=== PATIENT | female | born 1980 | race Caucasian/White ===

== ENCOUNTER 2018-09-18 06:31 | Emergency (ER) | payer OTHER, SELFPAY ==
--- NOTE | 2018-09-18 06:52 | ER ---
Nurse's Notes [facility] Name: Alysha Knight Age: 38 yrs Sex: Female : 1980 Arrival Date: 09/18/2018 Time: 06:32 Bed 7 Private MD: Diagnosis: Burn of second degree of right forearm;Cellulitis of right upper limb Presentation: 09/18 06:38 Presenting complaint: Patient states: she burned her R forearm on the oven at her work aa1 4 days ago and it has still not gotten any better. Transition of care: patient was not received from another setting of care. Onset of symptoms was September 14, 2018. Risk Assessment: Do you want to hurt yourself or someone else? Patient reports no desire to harm self or others. Initial Sepsis Screen: Does the patient meet any 2 criteria? No. Patient's initial sepsis screen is negative. Does the patient have a suspected source of infection? Yes: Skin breakdown/wound. Care prior to arrival: None. 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 - Social history:: Smoking status: Patient uses tobacco products, smokes one-half pack cigarettes per day. - Ebola Screening: : No symptoms or risks identified at this time. Screenin:41 Abuse screen: Denies threats or abuse. Denies injuries from another. Nutritional aa1 screening: No deficits noted. Tuberculosis screening: No symptoms or risk factors identified. Fall Risk None identified. Assessment: 06:41 General: Appears in no apparent distress. comfortable, Behavior is calm, cooperative, aa1 appropriate for age. Pain: Complains of pain in palmar aspect of right forearm Is continuous. Neuro: Level of Consciousness is awake, alert, obeys commands, Oriented to person, place, time, situation, Moves all extremities. Full function. Respiratory: Airway is patent Respiratory effort is even, unlabored, Respiratory pattern is regular, symmetrical. GI: No signs and/or symptoms were reported involving the gastrointestinal system. : No signs and/or symptoms were reported regarding the genitourinary system. EENT: No signs and/or symptoms were reported regarding the EENT system. Derm: Skin is intact, is healthy with good turgor, Skin is pink, warm \T\ dry. Musculoskeletal: Circulation, motion, and sensation intact. Capillary refill < 3 seconds. Injury Description: Burn was sustained 4 days Patient sustained second-degree burn(s) to palmar aspect of right forearm. 07:05 Reassessment: Patient appears in no apparent distress at this time. Patient is alert, aa1 oriented x 3, equal unlabored respirations, skin warm/dry/pink. Discussed d/c \T\ f/u instructions with pt; denies questions or concerns at this time. Vital Signs: 06:35 BP 140 / 89; Pulse 106; Resp 18; Temp 98.1; Pulse Ox 99% on R/A; Weight 113.4 kg; aa1 Height 5 ft. 9 in. (175.26 cm); Pain 10/10; 06:35 Body Mass Index 36.92 (113.40 kg, 175.26 cm) aa1 ED Course: 06:32 Patient arrived in ED. am2 06:35 Arm band placed on right wrist. aa1 06:38 Patrizia Clifton FNP-C is [facility]. kb 06:38 Jessenia Hanks MD is Attending Physician. kb 06:40 Antionette Morales RN is Primary Nurse. aa1 06:41 Patient has correct armband on for positive identification. Bed in low position. Call aa1 light in reach. Pulse ox on. NIBP on. 06:41 No provider procedures requiring assistance completed. Patient did not have IV access aa1 during this emergency room visit. 06:50 Dressings: Ananda x 1 palmar aspect of right forearm non-adherent dressing x 1 palmar aa1 aspect of right forearm. Burn care of medium second degree burn to palmar aspect of right forearm irrigated, Silvadene applied. 07:02 Triage completed. aa1 Administered Medications: 06:53 Drug: Bactrim (160 mg-800 mg (DS) 1 tablet Route: PO; aa1 06:58 Follow up: Response: Medication administered at discharge. aa1 06:53 Drug: KeFLEX 500 mg Route: PO; aa1 06:58 Follow up: Response: Medication administered at discharge. aa1 06:53 Drug: Silvadene Cream 1 % 1 application Route: Topical; Site: affected area; aa1 Outcome: 06:51 Discharge ordered by . roxanne 07:06 Discharged to home ambulatory. aa1 07:06 Condition: good 07:06 Discharge instructions given to patient, Instructed on discharge instructions, follow up and referral plans. medication usage, wound care, Demonstrated understanding of instructions, follow-up care, medications, wound care, Prescriptions given X 2. 07:07 Patient left the ED. aa1 Signatures: Patrizia Clifton, WINDYC KWAN-Antionette Barba RN RN aa1 Komal Medina am2
--- NOTE | 2018-09-18 06:52 | EDPHYS ---
Physician Documentation [facility] Name: Alysha Knight Age: 38 yrs Sex: Female : 1980 Arrival Date: 09/18/2018 Time: 06:32 Bed 7 Private MD: ED Physician Jessenia Hanks HPI: 09/18 06:43 This 38 yrs old Female presents to ER via Unassigned with complaints of Arm kb Burn. 06:43 The patient presents with a burn as a result of a hot surface, an oven, at work, is kb located on the palmar aspect of right forearm. Onset: The symptoms/episode began/occurred 5 day(s) ago. Burn type and severity: 2nd degree: of the palmar aspect of right forearm. Associated signs and symptoms: none. The patient did not suffer any apparent inhalation injury, The patient had no loss of consciousness. The patient has not experienced similar symptoms in the past. The patient has not recently seen a physician. Pt reports she was closing the oven door on Thursday and somehow it touched her arm, burning her. Pt has a second degree burn in the shape of a triangle to forearm. Appears that blister was there initially and has popped. Pt reports pain, swelling and redness has developed and worsened since onset. Surrounding cellulitis is noted. . 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 - Social history:: Smoking status: Patient uses tobacco products, smokes one-half pack cigarettes per day. - Ebola Screening: : No symptoms or risks identified at this time. ROS: 06:43 Constitutional: Negative for fever, chills, and weight loss, ENT: Negative for injury, kb pain, and discharge, Neck: Negative for injury, pain, and swelling, Cardiovascular: Negative for chest pain, palpitations, and edema, Respiratory: Negative for shortness of breath, cough, wheezing, and pleuritic chest pain, Abdomen/GI: Negative for abdominal pain, nausea, vomiting, diarrhea, and constipation, Back: Negative for injury and pain, : Negative for injury, bleeding, discharge, and swelling, MS/Extremity: Negative for injury and deformity, Neuro: Negative for headache, weakness, numbness, tingling, and seizure. 06:43 Skin: Positive for burn, cellulitis, of the palmar aspect of right forearm. Exam: 06:43 Constitutional: This is a well developed, well nourished patient who is awake, alert, kb and in no acute distress. Head/Face: Normocephalic, atraumatic. ENT: Nares patent. No nasal discharge, no septal abnormalities noted. Tympanic membranes are normal and external auditory canals are clear. Oropharynx with no redness, swelling, or masses, exudates, or evidence of obstruction, uvula midline. Mucous membranes moist. Neck: Trachea midline, no thyromegaly or masses palpated, and no cervical lymphadenopathy. Supple, full range of motion without nuchal rigidity, or vertebral point tenderness. No Meningismus. Chest/axilla: Normal chest wall appearance and motion. Nontender with no deformity. No lesions are appreciated. Cardiovascular: Regular rate and rhythm with a normal S1 and S2. No gallops, murmurs, or rubs. Normal PMI, no JVD. No pulse deficits. Respiratory: Lungs have equal breath sounds bilaterally, clear to auscultation and percussion. No rales, rhonchi or wheezes noted. No increased work of breathing, no retractions or nasal flaring. Abdomen/GI: Soft, non-tender, with normal bowel sounds. No distension or tympany. No guarding or rebound. No evidence of tenderness throughout. MS/ Extremity: Pulses equal, no cyanosis. Neurovascular intact. Full, normal range of motion. Neuro: Awake and alert, GCS 15, oriented to person, place, time, and situation. Cranial nerves II-XII grossly intact. Motor strength 5/5 in all extremities. Sensory grossly intact. Cerebellar exam normal. Normal gait. 06:43 Skin: cellulitis, that is mild, on the palmar aspect of right forearm, injury, burn(s), 2nd degree burn injury covers approximately 1% of the total body surface area, and is located on the palmar aspect of right forearm. Vital Signs: 06:35 BP 140 / 89; Pulse 106; Resp 18; Temp 98.1; Pulse Ox 99% on R/A; Weight 113.4 kg; aa1 Height 5 ft. 9 in. (175.26 cm); Pain 10/10; 06:35 Body Mass Index 36.92 (113.40 kg, 175.26 cm) aa1 MDM: 06:39 Patient medically screened. kb 06:43 Data reviewed: vital signs, nurses notes. Data interpreted: Pulse oximetry: on room air kb is 100 %. Interpretation: normal. Counseling: I had a detailed discussion with the patient and/or guardian regarding: the historical points, exam findings, and any diagnostic results supporting the discharge/admit diagnosis, the need for outpatient follow up, a family practitioner, to return to the emergency department if symptoms worsen or persist or if there are any questions or concerns that arise at home. ED course: Pt educated on importance of keeping wound clean. Cleaning and dressing instructions given. Verbal understanding received. . 09/18 06:42 Order name: Wound Care: clean and dress burn; Complete Time: 06:58 kb Administered Medications: 06:53 Drug: Bactrim (160 mg-800 mg (DS) 1 tablet Route: PO; aa1 06:58 Follow up: Response: Medication administered at discharge. aa1 06:53 Drug: KeFLEX 500 mg Route: PO; aa1 06:58 Follow up: Response: Medication administered at discharge. aa1 06:53 Drug: Silvadene Cream 1 % 1 application Route: Topical; Site: affected area; aa1 Disposition: 09/18/18 06:51 Discharged to Home. Impression: Burn of second degree of right forearm, Cellulitis of right upper limb. - Condition is Stable. - Discharge Instructions: Cellulitis, Adult, [id number], Burn Care, [id number], Second-Degree Burn. - Prescriptions for Keflex 500 mg Oral Capsule - take 1 capsule by ORAL route every 8 hours for 10 days; 30 capsule. Bactrim DS 800- 160 mg Oral Tablet - take 1 tablet by ORAL route every 12 hours for 10 days; 20 tablet. - Medication Reconciliation Form, Thank You Letter, Antibiotic Education, Prescription Opioid Use, Work release form form. - Follow up: Emergency Department; When: As needed; Reason: Worsening of condition. Follow up: Private Physician; When: 2 - 3 days; Reason: Recheck today's complaints, Continuance of care, Re-evaluation by your physician. Addendum: 09/21/2018 10:32 Co-signature as Attending Physician, Jessenia Hanks MD. m a2 Signatures: Patrizia Clifton FNP-C FNP-Ckb Autenrieth, Alissa RN RN aa1 Jessenia Hanks MD MD ma2 Corrections: (The following items were deleted from the chart) 09/18 07:07 06:51 09/18/2018 06:51 Discharged to Home. Impression: Burn of second degree of right aa1 forearm; Cellulitis of right upper limb. Condition is Stable. Forms are Medication Reconciliation Form, Thank You Letter, Antibiotic Education, Prescription Opioid Use. Follow up: Emergency Department; When: As needed; Reason: Worsening of condition. Follow up: Private Physician; When: 2 - 3 days; Reason: Recheck today's complaints, Continuance of care, Re-evaluation by your physician. kb
[2018-09-18] MEDS ORDERED: CEPHALEXIN 250 MG CAP ONE (07:02)
[2018-09-18] MEDS ORDERED: SMZ./TMP. 800/160 MG TABLET ONE (07:02)
[2018-09-18] MEDS ORDERED: SILVER SULFADIAZINE 1% 25 GM TOP ONE (07:02)
== END 2018-09-18 07:07 | disposition home or self-care (01) ==
LOC: ER 06:31
DX: T22.211A Burn of second degree of right forearm, initial encounter (principal); L03.113 Cellulitis of right upper limb; X15.0XXA Contact with hot stove (kitchen), initial encounter; Y93.89 Activity, other specified; Y92.89 Other specified places as the place of occurrence of the external cause; Y99.8 Other external cause status; F17.210 Nicotine dependence, cigarettes, uncomplicated
CPT/HCPCS: 99284

== ENCOUNTER 2020-09-14 08:37 | Emergency (ER) | payer SELFPAY ==
--- OUTSIDE RECORDS SUMMARY | 2020-09-14 08:40 | XMS REPORT | Continuity of Care Document ---
:1980 Author Organization [facility] t Address [address] [place] [address] [address] [place] [address] Care Team Providers Name Role Phone Dima HARDING Attending Clinician Ulisses Attending Clinician Unavailable Problems This patient has no known problems. Allergies, Adverse Reactions, Alerts This patient has no known allergies or adverse reactions. Medications This patient has no known medications. Procedures This patient has no known procedures. Encounters Start End Encounter Admission Attending Care Care Encounter Source Date/Time Date/Time Type Type Clinicians Facility Department ID 2020-09-12 2020-09-12 Emergency Dima [facility] [id number] 08:07:00 08:29:00 Wa[place]as [place] [id number] [place] [id number] [place] [id number] 2020-08-29 2020-08-29 Office JACLYN [facility] [id number] 10:39:35 11:39:35 Visit [facility] [id number] [facility] [id number] [place] [id number] Results This patient has no known results.
[2020-09-14 10:32] LABS: Absolute Lymphocytes (CBC) 2.3 K/uL (0.7-4.9); Basophils % 0.4 % (0-1.3); Hematocrit 39.8 % (36.0-45.0); Lymphocytes % 38.2 % (15.3-44.8); MPV 7.9 fL (7.6-11.3); RBC Red Blood Cell Count 4.35 M/uL (3.86-4.86)
[2020-09-14] MEDS ORDERED: FENTANYL CITR 100 MCG/2 ML ONE (10:41)
[2020-09-14] MEDS ORDERED: DIAZEPAM 10 MG/2 ML INJ SYRINGE ONE (10:42)
--- NOTE | 2020-09-14 10:43 | RAD REPORT ---
EXAM DESCRIPTION: CT - [id number] - 09/14/2020 10:24 am CLINICAL HISTORY: Trauma, head and neck injury. visual changes;Pain;Radiculopathy COMPARISON: No comparisons TECHNIQUE: Axial 5 mm thick images of the head were obtained. Axial 2 mm thick images of the cervical spine were obtained with sagittal and coronal reconstruction images generated and reviewed. All CT scans are performed using dose optimization technique as appropriate and may include automated exposure control or mA/KV adjustment according to patient size. FINDINGS: CT HEAD WITHOUT CONTRAST: No acute hemorrhage, hydrocephalus or extra-axial collection is identified.No areas of brain edema or midline shift. The paranasal sinuses and mastoids are clear.The calvarium is intact. CT CERVICAL SPINE WITHOUT CONTRAST: No fracture or subluxation.No prevertebral soft tissues swelling is identified. IMPRESSION: No acute intracranial or cervical spine findings.
[2020-09-14 10:53] LABS: Potassium 3.7 mmol/L (3.5-5.1)
--- NOTE | 2020-09-14 11:41 | RAD REPORT ---
EXAM DESCRIPTION: CT - Head angio - 09/14/2020 11:31 am CLINICAL HISTORY: VISUAL DISTURBANCES Headache, drowsiness COMPARISON: Neck Angio dated 09/14/2020 TECHNIQUE: CT angiography of the head was performed with MIPs. All CT scans are performed using dose optimization technique as appropriate and may include automated exposure control or mA/KV adjustment according to patient size. FINDINGS: No evidence of aneurysm is detected. No flow-limiting stenosis or vascular malformation id entified. Antegrade flow is seen in the vertebral arteries. Right vertebral artery is dominant. The visualized dural venous sinuses are patent. Several mildly prominent lymph nodes are seen in the parotid glands bilaterally as well as the library clerk talking books ior scalp subcutaneous fat. These are nonspecific. IMPRESSION: No significant flow abnormality is detected.
--- NOTE | 2020-09-14 11:43 | RAD REPORT ---
EXAM DESCRIPTION: CT - Neck Angio - 09/14/2020 11:31 am CLINICAL HISTORY: Headache;Numbness COMPARISON: Head C Spine Mpr Wo Con dated 09/14/2020 TECHNIQUE: CT angiography of the neck vessels was performed with MIPs. All CT scans are performed using dose optimization technique as appropriate and may include automated exposure control or mA/KV adjustment according to patient size. FINDINGS: A left aortic arch is identified with normal three vessel configuration of the great vesse ls. No significant flow abnormality is seen of the common carotid bilaterally. No significant stenosis is identified involving the cervical segments of both internal carotid arteri es. Normal flow is seen within both vertebral arteries. The right vertebral artery is dominant. Multiple mildly prominent lymph nodes are seen throughout the neck bilaterally, nonspecific. IMPRESSION: No significant flow abnormality of the neck vessels is identified. Mildly prominent lymphadenopathy throughout the neck, nonspecific.
[2020-09-14 11:59] LABS: Urine Blood 2+ (Negative); Urine Glucose Negative (Negative); Urine Protein Negative (Negative)
--- NOTE | 2020-09-14 12:12 | ER ---
Nurse's Notes [facility] Name: Alysha Knight Age: 40 yrs Sex: Female : 1980 Arrival Date: 09/14/2020 Time: 08:43 Bed 20 Private MD: Diagnosis: Muscle spasm Presentation: 09/14 09:13 Chief complaint: Patient states: Pain to back of head and R side of neck that began 3 ss days ago. Pt was seen [facility] 2 days ago and given Naproxen and nausea medication . Pt states that medication is not helping and the pain and swelling seem to be getting worse. Coronavirus screen: Client denies travel out of the [place] in the last 14 days. Ebola Screen: Patient denies exposure to infectious person. Patient denies travel to an Ebola-affected area in the 21 days before illness onset. Initial Sepsis Screen: Does the patient meet any 2 criteria? No. Patient's initial sepsis screen is negative. Does the patient have a suspected source of infection? No. Patient's initial sepsis screen is negative. Risk Assessment: Do you want to hurt yourself or someone else? Patient reports no desire to harm self or others. Onset of symptoms was September 11, 2020. 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 - Social history:: Smoking status: Patient reports the use of cigarette tobacco products, smokes one-half pack cigarettes per day. Screenin:42 Abuse screen: Denies threats or abuse. Denies injuries from another. Nutritional ca1 screening: No deficits noted. Tuberculosis screening: No symptoms or risk factors identified. Fall Risk None identified. Assessment: 09:42 General: Appears in no apparent distress. comfortable, Behavior is calm, cooperative, ca1 appropriate for age. Neuro: Level of Consciousness is awake, alert, obeys commands, Oriented to person, place, time, situation. Derm: Skin is intact, is healthy with good turgor, Skin is pink, warm \\T\\ dry. Musculoskeletal: Circulation, motion, and sensation intact. Capillary refill < 3 seconds. 09:42 Pain: Complains of pain in left trapezius, right trapezius and thoracic area Pain ca1 radiates to back Pain currently is 10 out of 10 on a pain scale. Quality of pain is described as sharp, Pain began 2-3 days ago. Is intermittent, Aggravated by repositioning. 09:42 Pain: Pain began States, "while I was driving, when I move my shoulders the pain is so ca1 much that my vision was blurry and it almost was black". Neuro:. Cardiovascular: Cardiovascular: Heart tones S1 S2 present Capillary refill < 3 seconds Patient's skin is warm and dry. Respiratory: Airway is patent Respiratory effort is even, unlabored, Respiratory pattern is regular, symmetrical, Breath sounds are clear bilaterally. GI: Abdomen is round non-distended, Bowel sounds present X 4 quads. Abd is soft and non tender X 4 quads. : No signs and/or symptoms were reported regarding the genitourinary system. EENT: No signs and/or symptoms were reported regarding the EENT system. 10:45 Reassessment: Patient appears in no apparent distress at this time. Patient and/or ca1 family updated on plan of care and expected duration. Pain level reassessed. Patient is alert, oriented x 3, equal unlabored respirations, skin warm/dry/pink. 12:00 Reassessment: Patient appears in no apparent distress at this time. Patient and/or ca1 family updated on plan of care and expected duration. Pain level reassessed. Patient is alert, oriented x 3, equal unlabored respirations, skin warm/dry/pink. Patient states feeling better. Patient states symptoms have improved. Vital Signs: 09:13 BP 136 / 94; Pulse 84; Resp 16; Temp 98.0(TE); Pulse Ox 100% ; Weight 117.03 kg; Height ss 5 ft. 9 in. (175.26 cm); Pain 9/10; 10:57 BP 121 / 78; Pulse 77; Resp 17; Temp 97.9(O); Pulse Ox 98% ; mh5 12:00 BP 120 / 74; Pulse 70; Resp 15 S; Pulse Ox 99% on R/A; ca1 09:13 Body Mass Index 38.10 (117.03 kg, 175.26 cm) ED Course: 08:43 Patient arrived in ED. ds1 09:18 Triage completed. ss 09:18 Arm band placed on right wrist. ss 09:39 Fareed Sheffield PA is PHCP. jr8 09:39 Jessenia Hanks MD is Attending Physician. jr8 09:42 Patient has correct armband on for positive identification. Bed in low position. Call ca1 light in reach. Side rails up X 1. Pulse ox on. NIBP on. Warm blanket given. 09:47 Lizabeth Luis, ELENA is Primary Nurse. ca1 10:19 Initial lab(s) drawn, by sc, sent to lab. Inserted saline lock: 20 gauge in left ca1 antecubital area, using aseptic technique. Blood collected. 10:23 CT Head C Spine In Process Unspecified. EDMS 10:54 lunchroom monitor on. Pulse ox on. mh5 10:54 EKG done, by ED staff, reviewed by Fareed ERICKSON. 5 11:31 CT Head Angio In Process Unspecified. EDMS 11:31 CT Neck Angio In Process Unspecified. EDMS 12:08 Urine collected: clean catch specimen, clear. mh5 12:26 No provider procedures requiring assistance completed. IV discontinued, intact, ca1 bleeding controlled, No redness/swelling at site. Pressure dressing applied. Administered Medications: 10:40 Drug: fentaNYL (PF) 50 mcg {Note: rass 0.} Route: IVP; Site: left antecubital; ca1 12:18 Follow up: Response: No adverse reaction; Pain is decreased; RASS: Alert and Calm (0) ca1 10:42 Drug: Valium (diazepam) 2 mg Route: IVP; Site: left antecubital; ca1 12:17 Follow up: Response: No adverse reaction; Marked relief of symptoms ca1 12:18 Drug: TORadol - (ketorolac) 15 mg Route: IVP; Site: left antecubital; ca1 12:26 Follow up: Response: No adverse reaction; Pain is decreased ca1 Outcome: 12:11 Discharge ordered by . jr8 12:34 Discharged to home via wheelchair, with family. ca1 12:34 Condition: stable 12:34 Discharge instructions given to patient, Instructed on discharge instructions, follow up and referral plans. no drinking with medication, no driving heavy equipment, medication usage, Demonstrated understanding of instructions, follow-up care, medications, Prescriptions given X 3. 12:34 Patient left the ED. ca1 Signatures: Dispatcher [employer] EDAR Yajaira Good ds1 Stephanie Mack RN RN Fareed Sheffield PA PA [facility] Malika Lamb 5 Lizabeth Luis RN RN ca1 Corrections: (The following items were deleted from the chart) 09:42 General: Appears in no apparent distress. comfortable, Behavior is calm, ca1 cooperative, appropriate for age, ca1 09:42 Pain: Complains of pain in right lower back and right gluteus eduardo Pain ca1 radiates to right leg Pain currently is 8 out of 10 on a pain scale. Quality of pain is described as tingling, Pain began 2-3 days ago. Is intermittent, Aggravated by repositioning, weight bearing, ca1
--- NOTE | 2020-09-14 12:12 | EDPHYS ---
Physician Documentation [facility] Name: Alysha Knight Age: 40 yrs Sex: Female : 1980 Arrival Date: 09/14/2020 Time: 08:43 Bed 20 Private MD: ED Physician Jessenia Hanks HPI: 09/14 11:47 This 40 yrs old Female presents to ER via Ambulatory with complaints of Neck jr8 Pain. 11:47 Onset: The symptoms/episode began/occurred gradually, 3 day(s) ago. Associated signs jr8 and symptoms: Pertinent positives: blurred vision. Modifying factors: The patient symptoms are alleviated by nothing, the patient symptoms are aggravated by movement. The patient has not experienced similar symptoms in the past. The patient has not recently seen a physician. Denies trauma to neck. Stated that it hurts to flex and extend but was concerned because she was having nausea, headache at base of head, blurred vision, and recently today a short episode of what she though was darkening of vision . 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 - Social history:: Smoking status: Patient reports the use of cigarette tobacco products, smokes one-half pack cigarettes per day. ROS: 11:47 Eyes: Negative for injury, pain, redness, and discharge, ENT: Negative for injury, jr8 pain, and discharge, Cardiovascular: Negative for chest pain, palpitations, and edema, Respiratory: Negative for shortness of breath, cough, wheezing, and pleuritic chest pain, Abdomen/GI: Negative for abdominal pain, nausea, vomiting, diarrhea, and constipation, Back: Negative for injury and pain, MS/Extremity: Negative for injury and deformity, Skin: Negative for injury, rash, and discoloration. 11:47 Neck: Positive for pain with movement, pain at rest, tenderness. 11:47 Neuro: Positive for visual changes. Exam: 11:47 Constitutional: This is a well developed, well nourished patient who is awake, alert, jr8 and in no acute distress. Eyes: Pupils equal round and reactive to light, extra-ocular motions intact. Lids and lashes normal. Conjunctiva and sclera are non-icteric and not injected. Cornea within normal limits. Periorbital areas with no swelling, redness, or edema. ENT: Nares patent. No nasal discharge, no septal abnormalities noted. Tympanic membranes are normal and external auditory canals are clear. Oropharynx with no redness, swelling, or masses, exudates, or evidence of obstruction, uvula midline. Mucous membranes moist. Cardiovascular: Regular rate and rhythm with a normal S1 and S2. No gallops, murmurs, or rubs. Normal PMI, no JVD. No pulse deficits. Respiratory: Lungs have equal breath sounds bilaterally, clear to auscultation and percussion. No rales, rhonchi or wheezes noted. No increased work of breathing, no retractions or nasal flaring. Abdomen/GI: Soft, non-tender, with normal bowel sounds. No distension or tympany. No guarding or rebound. No evidence of tenderness throughout. Back: No spinal tenderness. No costovertebral tenderness. Full range of motion. Skin: Warm, dry with normal turgor. Normal color with no rashes, no lesions, and no evidence of cellulitis. MS/ Extremity: Pulses equal, no cyanosis. Neurovascular intact. Full, normal range of motion. Neuro: Awake and alert, GCS 15, oriented to person, place, time, and situation. Cranial nerves II-XII grossly intact. Motor strength 5/5 in all extremities. Sensory grossly intact. Cerebellar exam normal. Normal gait. 11:47 Neck: External neck: tenderness, that is mild, of the left mid cervical area, right mid cervical area, left trapezius, lower cervical area and right trapezius, C-spine: appears grossly normal, Thyroid: appears normal, Trachea: is midline with no obvious abnormalities, ROM/movement: pain, that is mild, with extension, with flexion, limited range of motion, is not appreciated, Meningeal signs: are not present, Kernig's sign is negative, Brudzinski's sign is negative, nuchal rigidity, is not appreciated, Lymph nodes: no appreciated lymphadenopathy. Vital Signs: 09:13 BP 136 / 94; Pulse 84; Resp 16; Temp 98.0(TE); Pulse Ox 100% ; Weight 117.03 kg; Height ss 5 ft. 9 in. (175.26 cm); Pain 9/10; 10:57 BP 121 / 78; Pulse 77; Resp 17; Temp 97.9(O); Pulse Ox 98% ; mh5 12:00 BP 120 / 74; Pulse 70; Resp 15 S; Pulse Ox 99% on R/A; ca1 09:13 Body Mass Index 38.10 (117.03 kg, 175.26 cm) ss MDM: 09:52 Patient medically screened. jr8 11:51 Data reviewed: vital signs, nurses notes, lab test result(s), EKG, radiologic studies, jr8 CT scan. Data interpreted: Pulse oximetry: on room air is 98 %. Interpretation: normal. Counseling: I had a detailed discussion with the patient and/or guardian regarding: the historical points, exam findings, and any diagnostic results supporting the discharge/admit diagnosis, lab results, radiology results, the need for outpatient follow up, a family practitioner, to return to the emergency department if symptoms worsen or persist or if there are any questions or concerns that arise at home. 12:10 ED course: No arterial or other acute findings on CTs of neck or head. Labs stable. jr8 Mild improvement. At this time I believe this is MSK in nature. Will treat as such and have patient follow up. Close return precautions given . 09/14 10:07 Order name: CBC with Diff; Complete Time: 10:44 09/14 10:07 Order name: Basic Metabolic Panel; Complete Time: 10:55 09/14 10:08 Order name: CT Head C Spine; Complete Time: 10:44 09/14 10:46 Order name: CT Head Angio; Complete Time: 11:45 09/14 10:46 Order name: CT Neck Angio; Complete Time: 11:45 09/14 11:59 Order name: Urine Dipstick-Ancillary; Complete Time: 12:09 EDMS 09/14 10:07 Order name: IV; Complete Time: 10:19 09/14 10:07 Order name: EKG - Nurse/Tech; Complete Time: 10:42 8 09/14 10:07 Order name: EKG; Complete Time: 10:08 09/14 10:07 Order name: Urine Test (obtain specimen); Complete Time: 12:8 09/14 10:07 Order name: Urine Dipstick-Ancillary (obtain specimen); Complete Time: 12: Administered Medications: 10:40 Drug: fentaNYL (PF) 50 mcg {Note: rass 0.} Route: IVP; Site: left antecubital; ca1 12:18 Follow up: Response: No adverse reaction; Pain is decreased; RASS: Alert and Calm (0) ca1 10:42 Drug: Valium (diazepam) 2 mg Route: IVP; Site: left antecubital; ca1 12:17 Follow up: Response: No adverse reaction; Marked relief of symptoms ca1 12:18 Drug: TORadol - (ketorolac) 15 mg Route: IVP; Site: left antecubital; ca1 12:26 Follow up: Response: No adverse reaction; Pain is decreased ca1 Disposition: 09/14/20 12:11 Discharged to Home. Impression: Muscle spasm. - Condition is Stable. - Discharge Instructions: Muscle Cramps and Spasms. - Prescriptions for meloxicam 15 mg Oral tablet - take 1 tablet by ORAL route once daily As needed; 16 tablet. Robaxin 500 mg Oral Tablet - take 2 tablet by ORAL route every 6 hours As needed; 40 tablet. Medrol (Mat) 4 mg Oral Tablets, Dose Pack - take 1 tablet by ORAL route as directed - follow package instructions; 1 packet. - Medication Reconciliation Form, Thank You Letter, Antibiotic Education, Prescription Opioid Use, Work release form form. - Follow up: Private Physician; When: 1 week; Reason: Recheck today's complaints, Continuance of care, Re-evaluation by your physician. - Problem is new. - Symptoms have improved. Addendum: 09/15/2020 14:32 Co-signature as Attending Physician, Jessenia Hanks MD. m a2 Signatures: Dispatcher [employer] EDND Stephanie Mack RN RN ss Fareed Sheffield PA PA jr8 Jessenia Hanks MD MD ma2 Lizabeth Luis RN RN ca1 Corrections: (The following items were deleted from the chart) 09/14 12:34 12:11 09/14/2020 12:11 Discharged to Home. Impression: Muscle spasm. Condition is ca1 Stable. Forms are Medication Reconciliation Form, Thank You Letter, Antibiotic Education, Prescription Opioid Use. Follow up: Private Physician; When: 1 week; Reason: Recheck today's complaints, Continuance of care, Re-evaluation by your physician. Problem is new. Symptoms have improved. jr8
[2020-09-14] MEDS ORDERED: KETOROLAC 30 MG/ML INJ ONE (12:40)
[2020-09-14 12:52] VITALS: TEMP 97.9
[2020-09-14 13:01] VITALS: BP 120/74; O2SAT 99
--- NOTE | 2020-09-15 09:46 | EKG ---
Test Date: 2020-09-14 Test Time: 10:45:35 Leak Patcher: CAROLYN MEASUREMENT RESULTS: Intervals: Rate: 66 NM: 116 QRSD: 82 QT: 410 QTc: 429 [place]: P: 52 NM: 116 QRS: 27 T: 38 INTERPRETIVE STATEMENTS: Normal sinus rhythm Normal ECG Compared to ECG 12/11/2004 09:32:00 No significant changes Electronically Signed On 09-15-20 09:43:48 CDT by Mikel Bello
== END 2020-09-14 12:34 | disposition home or self-care (01) ==
LOC: ER 08:37
DX: M62.838 Other muscle spasm (principal); F17.210 Nicotine dependence, cigarettes, uncomplicated
CPT/HCPCS: 36415; 70450; 70496; 70498; 72125; 80048; 81003; 85025; 93005; J3010; J3360; Q9967